=== PATIENT | female | born 1965 | race Caucasian/White ===

== ENCOUNTER 2019-05-23 11:34 | Emergency (ER) | payer OTHER ==
[2019-05-23] MEDS ORDERED: PRINIVIL10 M1 (12:01)
[2019-05-23 12:17] LABS: EOS # 0.1 (0.04-0.40); EOS % 1.9 % (1.0-5.0); HEMATOCRIT 43.7 % (37.0-47.0); HEMOGLOBIN 13.9 g/dL (12.5-16.0); LYMPH# 1.3 (1.50-4.00); MEAN CELL VOLUME 89 fl (78-100); MEAN CORPUSCULAR HEMOGLOBIN 28 pg (27-31); MEAN CORPUSCULAR HGB CONC 32 g/dL (33-37); MEAN PLATELET VOLUME 10.4 fl (7.4-10.4); MONO # 0.6 (0.20-0.80); NEU # 3.7 (1.40-6.50); PLATELET COUNT 388 K/mm3 (130-400); RED BLOOD COUNT 4.94 M/mm3 (4.10-5.30); RED CELL DISTRIBUTION WIDTH 15.5 % (11.5-14.5); WHITE BLOOD COUNT 5.7 K/mm3 (4.8-10.8)
[2019-05-23 12:31] LABS: POTASSIUM 3.8 mmol/L (3.5-5.1)
[2019-05-23 12:33] LABS: CALCIUM 9.9 mg/dL (8.3-10.5)
[2019-05-23] MEDS ORDERED: LISINOPRIL20 MG PO (15:21)
[2019-05-23 15:55] VITALS: BP 159/88
[2019-05-24] MEDS ORDERED: PROAIR HFA0.09 MG/AC IH (11:48)
== END 2019-05-23 15:37 | disposition home or self-care (01) ==
LOC: ED 11:34
PROVIDERS: Family Medicine
DX: I10 Essential (primary) hypertension (principal); E86.9 Volume depletion, unspecified; F15.90 Other stimulant use, unspecified, uncomplicated
CPT/HCPCS: J0360; J7030